=== PATIENT | female | born 1985 | race Two or more races ===

== ENCOUNTER 2024-02-20 08:30 | Day surgery (SDC) | payer OTHER ==
[2024-03-02] MEDS ORDERED: EPINEPHRINE HCL/PF 1 MG/ML AMPUL IR ONE (14:45)
[2024-03-02] MEDS ORDERED: LIDOCAINE HCL 1% 20ML VIAL IJ ONE (14:45)
[2024-03-02] MEDS ORDERED: CEFAZOLIN SODIUM 1,000 MG VIAL IV ONE ×2 (14:45→15:00)
[2024-03-02] MEDS ORDERED: GENTAMICIN SULFATE 40 MG/ML VIAL IR ONE (15:00)
[2024-03-02] MEDS ORDERED: BACITRACIN 28.35 GM OINT.TUBE TOP ONE (15:00)
[2024-03-02] MEDS ORDERED: SUGAMMADEX SODIUM 200 MG/2 ML VIAL IV ONE (15:00)
[2024-03-02] MEDS ORDERED: VANCOMYCIN HCL 1,000 MG VIAL IR ONE (15:00)
== END 2024-02-20 18:30 | disposition home or self-care (01) ==
LOC: CIR.AMB 08:30 → ADM 08:30
PROVIDERS: ATTEND Specialist
DX: E88.1 Lipodystrophy, not elsewhere classified (principal)